=== PATIENT | female | born 1950 | race Caucasian/White ===

== ENCOUNTER → 2024-11-30 11:57 | Outpatient (REF) | payer MEDICARE, SELFPAY | LOC: HWWDC 11:57 | PROVIDERS: ATTENDING PHYSICIAN Obstetrics & Gynecology; FAMILY PHYSICIAN Internal Medicine | DX: Z12.31 Encounter for screening mammogram for malignant neoplasm of breast (principal) | CPT/HCPCS: 77063; 77067 ==

== ENCOUNTER → 2025-02-28 11:38 | Outpatient (REF) | payer MEDICARE, SELFPAY | LOC: HWRAD 11:38 | PROVIDERS: ATTENDING PHYSICIAN Internal Medicine Cardiovascular Disease; FAMILY PHYSICIAN Internal Medicine | DX: J84.10 Pulmonary fibrosis, unspecified (principal); I42.0 Dilated cardiomyopathy | CPT/HCPCS: 71250 ==

== ENCOUNTER → 2025-05-16 11:20 | Outpatient (REF) | payer MEDICARE, SELFPAY ==
[2025-05-16 13:08] LABS: Hematocrit 31.2 % (37.0-47.0); Hemoglobin 10.1 g/dL (12.0-16.0); Mean Corp Hgb Conc. 32.4 g/dL (33.0-37.0); Mean Corpuscular Volume 88.6 fL (81.0-99.0); Nucleated Red Blood Cells % 0 %; Platelet Count 484 10^3/uL (130-400); Red Cell Dist. Width 13.8 % (11.5-14.5)
[2025-05-16 13:30] LABS: C-Reactive Protein 32.40 mg/L (0.0-10.00)
[2025-05-17 11:36] LABS: Rheumatoid Agglutinin Less Than 10 IU (<10 IU)
[2025-05-19 03:35] LABS: ANA, IgG Reflex to HEp-2 None Detected (None Detected)
== END ==
LOC: HWLAB 11:20
PROVIDERS: ATTENDING PHYSICIAN Internal Medicine; FAMILY PHYSICIAN Internal Medicine
DX: J84.10 Pulmonary fibrosis, unspecified (principal)
CPT/HCPCS: 36415; 83516; 85025; 86038; 86140; 86235; 86430